=== PATIENT | male | born 1940 | race Caucasian/White ===

== ENCOUNTER 2017-09-23 16:37 | Inpatient (IN) | payer MEDICARE, BC, MEDICAID ==
[2017-09-23 17:02] LABS: CHLORIDE,CL 112 mEq/L (98-106); SODIUM,NA 150 mEq/L (136-145)
[2017-09-23] MEDS ORDERED: Temazepam 15 MG Cap PO PRN (20:42)
[2017-09-23] MEDS ORDERED: Magnesium Hydroxide 400 MG/5 ML Susp 30 ML Cup PO PRN (20:42)
--- NOTE | 2017-09-23 21:12 | PCM.HP ---
H&P History of Present Illness - General Date of Service: 09/23/17 Admit Problem/Dx: Admission Diagnosis/Problem Acute on chronic renal insufficiency Left subsegmental retrocardiac infiltrate Source of Information: EMS, Detention Records History Limitations: Reports: Altered Mental Status - History of Present Illness Initial Comments - Free Text/Narative: Jasper is a 77 year old male, with PMH of dementia, COPD, CAD, glaucoma, CHF, OCD, and type II DM, who is a direct admit from [facility]. He resides in the Alzheimer unit at [facility]. residential staff report since Saturday he has had fever , as high as 102, and has been more lethargic. They called Dr. Bragg earlier today, who ordered labs, showing creatinine of 2.6, BUN 81, and WBC of 19.5 with band neutrophils. Orders were given to [facility] staff to start IVF and give rocephin. [facility] staff reportedly were unable to get an IV in, so they called EMS and he was admitted to hospital. ROS difficult to obtain due to AMS. Patient himself denies any pain or illness. They report at baseline he is ambulatory with a walker. Since Saturday, he has been increasingly more weak and nonambulatory. Has not been coughing. Has not been c/o pain. They report he has not been eating or drinking much. Symptom Onset Date: 09/20/17 Duration of Symptoms: Reports: Getting Worse Location: Reports: Generalized Associated Symptoms: Reports: Confusion, Diaphoresis, Fever/Chills, Loss of Appetite, Weakness. Denies: Chest Pain, Cough, cough w sputum, Nausea/Vomiting - Related Data Allergies/Adverse Reactions: Allergies Allergy/AdvReac Type Severity Reaction Status Date / Time Penicillins Allergy Cannot Verified 09/23/17 21:13 Remember Home Medications: Home Meds Latanoprost 1 drop EYELF BEDTIME 11/01/14 [History] Insulin Detemir [Levemir] 15 unit SUBCUT BEDTIME #1 vial 11/05/14 [Rx] Valsartan [Diovan] 80 mg PO DAILY #30 tablet 11/05/14 [Rx] Acetaminophen [Tylenol] 650 mg PO Q4H PRN 09/23/17 [History] Aspirin [Halfprin] 81 mg PO DAILY 09/23/17 [History] Furosemide [Lasix] 40 mg PO 0800,1600 09/23/17 [History] Social & Family History - Tobacco Use Smoking Status *Q: Former Smoker Years of Tobacco use: 10 Used Tobacco, but Quit: Yes Month/Year Tobacco Last Used: H&P Review of Systems - Review of Systems: Review Of Systems: Unable To Obtain Free Text/Narrative: ROS difficult to obtain due to AMS. ROS partially obtained from [facility] staff report General: Reports: Fever, Weakness, Fatigue, Diaphoresis, Decreased Appetite Pulmonary: Denies: Cough, Sputum Cardiovascular: Denies: Edema Gastrointestinal: Reports: Decreased Appetite. Denies: Vomiting Genitourinary: Reports: Incontinence Psychiatric: Reports: Confusion Neurological: Reports: Confusion, Difficulty Walking Exam - Exam Exam: See Below - Vital Signs Weight: 181 lb 12.8 oz - Exam Quality Assessment: Supplemental Oxygen General: Lethargic (but arousable). No: Oriented HEENT: EOMI, Pupils Equal, Pupils Reactive Neck: Supple, Trachea Midline, 2 Lungs: Clear to Auscultation, Normal Respiratory Effort Cardiovascular: Regular Rate, Regular Rhythm, Systolic Murmur GI/Abdominal Exam: Normal Bowel Sounds, Soft, Non-Tender, No Organomegaly, No Distention, No Abnormal Bruit, No Mass, Pelvis Stable Extremities: Normal Inspection, Normal Range of Motion, Non-Tender, No Pedal Edema, Normal Capillary Refill Peripheral Pulses: 2+: Dorsalis Pedis (L), Dorsalis Pedis (R) Skin: Other (clammy, redness to buttocks) Neurological: Cranial Nerves Intact, Reflexes Equal Bilateral Neuro Extensive - Mental Status: Disorientation to Person, Disorientation to Place, Disorientation to Time, Memory Loss-Remote Events, Memory Loss-Recent Events - Patient Data Lab Results Last 24 hrs: Laboratory Results - last 24 hr 09/23/17 09/23/17 Range/Units 13:00 13:00 WBC 19.5 H (5.0-10.0) 10^3/uL RBC 4.26 L (4.50-6.00) 10^6/uL Hgb 13.0 L (14.0-18.0) g/dL Hct 38.6 L (40.0-54.0) % MCV 90.6 (82.0-94.0) fL MCH 30.5 (27.0-32.0) pg MCHC 33.7 (33.0-38.0) g/dL RDW Coeff of Marylin 13.1 (11.0-15.0) % Plt Count 323 (150-400) 10^3/uL Add Manual Diff Yes Neutrophils % (Manual) 72 (35-85) % Band Neutrophils % 8 H (0-5) % Lymphocytes % (Manual) 5 L (21-55) % Monocytes % (Manual) 11 (2-12) % Metamyelocytes % 4 % Absolute Neutrophils 15.60 H (1.80-7.00) 10^3/uL Lymphocytes # (Manual) 0.98 L (1.00-4.80) 10^3/uL Monocytes # (Manual) 2.15 H (0.00-0.80) 10^3/uL Sodium 150 H (136-145) mEq/L Potassium 3.9 (3.5-5.0) mEq/L Chloride 112 H (98-106) mEq/L Carbon Dioxide 22 (21-32) mmol/L BUN 81 H* D (7-18) mg/dL Creatinine 2.6 H* D (0.7-1.3) mg/dL Est Cr Clr Drug Dosing TNP Estimated GFR (MDRD) 24 L (>=60) mL/min Glucose 249 H D (75-99) mg/dL Calcium 9.0 (8.4-10.1) mg/dL Total Bilirubin 0.5 (0.0-1.0) mg/dL AST 37 (15-37) U/L ALT 32 (12-78) U/L Alkaline Phosphatase 88 (46-116) U/L Total Protein 7.7 (6.4-8.2) g/dL Albumin 3.0 L (3.4-5.0) g/dL Result Diagrams: 09/24/17 07:52 09/23/17 13:00 *Q Meaningful Use (ADM) - VTE *Q VTE Criteria *Q: - Stroke *Q Stroke Criteria *Q: - AMI *Q AMI Criteria *Q: - Problem List (1) Acute on chronic renal failure SNOMED Code(s): 479409307 ICD Code: N17.9 - ACUTE KIDNEY FAILURE, UNSPECIFIED; N18.9 - CHRONIC KIDNEY DISEASE, UNSPECIFIED Status: Chronic Current Visit: Yes Qualifiers: Acute renal failure type: unspecified (2) Dementia SNOMED Code(s): 29959072 ICD Code: F03.90 - UNSPECIFIED DEMENTIA WITHOUT BEHAVIORAL DISTURBANCE Status: Acute Current Visit: Yes Qualifiers: Dementia type: Alzheimer's disease (3) Type II diabetes mellitus SNOMED Code(s): 70755036 ICD Code: E11.9 - TYPE 2 DIABETES MELLITUS WITHOUT COMPLICATIONS Status: Acute Current Visit: Yes Qualifiers: Diabetes mellitus complication status: with hyperglycemia Diabetes mellitus usp insulin use: with usp use Qualified Code(s): E11.65 - Type 2 diabetes mellitus with hyperglycemia; Z79.4 - ferry terminal agent (current) use of insulin; Z79.4 - ferry terminal agent (current) use of insulin; Z79.4 - ferry terminal agent ( current) use of insulin; Z79.4 - correction (current) use of insulin (4) Hypertension SNOMED Code(s): 97268416 ICD Code: I10 - ESSENTIAL (PRIMARY) HYPERTENSION Status: Acute Current Visit: Yes Qualifiers: Hypertension type: essential hypertension Qualified Code(s): I10 - Essential (primary) hypertension (5) Pneumonia SNOMED Code(s): 558701675 ICD Code: J18.9 - PNEUMONIA, UNSPECIFIED ORGANISM Status: Acute Priority : High Current Visit: Yes Qualifiers: Pneumonia type: due to unspecified organism Laterality: left Lung location: unspecified part of lung Qualified Code(s): J18.9 - Pneumonia, unspecified organism Problem List Initiated/Reviewed/Updated: Yes Orders Last 24hrs: Active Orders 24 hr Category Date Time Status Patient Status [ADT] Routine ADT 09/23/17 20:42 Ordered Blood Glucose Check, Bedside [RC] WITHMEALSANDBED Care 09/23/17 20:49 Ordered Intake and Output [RC] QSHIFT Care 09/23/17 20:43 Ordered Oxygen Therapy [RC] PRN Care 09/23/17 20:42 Ordered Pulse Oximetry [RC] PRN Care 09/23/17 20:43 Ordered Up With Assistance [RC] ASDIRECTED Care 09/23/17 20:42 Ordered VTE/DVT Education [RC] PER UNIT ROUTINE Care 09/23/17 20:42 Ordered Vital Signs [RC] Q4H Care 09/23/17 20:42 Ordered Regular Diet [DIET] Diet 09/24/17 Breakfast Ordered Chest 2V [CR] Stat Exams 09/23/17 20:42 Ordered C-REACTIVE PROTEIN [CHEM] Stat Lab 09/23/17 20:42 Ordered CULTURE BLOOD [BC] Stat Lab 09/23/17 20:45 Ordered CULTURE BLOOD [BC] Stat Lab 09/23/17 20:45 Ordered MAGNESIUM [CHEM] Stat Lab 09/23/17 20:42 Ordered TROPONIN I [CHEM] Stat Lab 09/23/17 20:42 Ordered UA W/MICROSCOPIC [URIN] Stat Lab 09/23/17 20:42 Ordered Acetaminophen [Tylenol] Med 09/23/17 20:42 Ordered 650 mg PO Q4H PRN Azithromycin [Zithromax] 500 mg Med 09/23/17 21:00 Ordered Sodium Chloride 0.9% [Normal Saline] 250 ml IV Q24H Enoxaparin [Lovenox] Med 09/23/17 20:45 Ordered 30 mg SUBCUT Q24H Insulin Aspart [NovoLOG] Med 09/23/17 21:00 Ordered See Protocol SUBCUT WITHMEALSANDBED Magnesium Hydroxide [Milk of Magnesia] Med 09/23/17 20:42 Ordered 30 ml PO Q12H PRN Sodium Chloride 0.9% @ 125 MLS/HR (1000ml) Med 09/23/17 20:45 Ordered Sodium Chloride 0.9% [Normal Saline] 1,000 ml IV ASDIRECTED Temazepam [Restoril] Med 09/23/17 20:42 Ordered 15 mg PO BEDTIME PRN cefTRIAXone [Rocephin] Med 09/23/17 21:00 Ordered 1 gm IVPUSH Q24H Blood Culture x2 Reflex Set [OM.PC] Stat Oth 09/23/17 20:42 Ordered Resuscitation Status Routine Resus Stat 09/23/17 20:42 Ordered EKG 12 Lead [EK] Stat Ther 09/23/17 20:42 Ordered Medication Orders Acetaminophen (Tylenol) 650 mg PO Q4H PRN PRN Reason: Pain (Mild 1-3)/fever Ceftriaxone Sodium (Rocephin) 1 gm IVPUSH Q24H NASIR Enoxaparin Sodium (Lovenox) 30 mg SUBCUT Q24H NASIR Sodium Chloride (Normal Saline) 1,000 mls @ 125 mls/hr IV ASDIRECTED NASIR Azithromycin 500 mg/ Sodium (Chloride) 250 mls @ 250 mls/hr IV Q24H NASIR Insulin Aspart (Novolog) 0 unit SUBCUT WITHMEALSANDBED NASIR PRN Reason: Protocol Magnesium Hydroxide (Milk Of Magnesia) 30 ml PO Q12H PRN PRN Reason: Constipation Temazepam (Restoril) 15 mg PO BEDTIME PRN PRN Reason: Sleep Assessment/Plan Comment:: CXR shows small left effusion and subsegmental retrocardiac opacity Admit to acute to Dr. Bragg Start IV antibiotics and steroids IVF @ 125 mL/hr Awaiting blood cultures Labs in am
[2017-09-23] MEDS: Sodium Chloride 0.9% 1,000 ML IV SCH (22:00)
[2017-09-23] MEDS: Acetaminophen 325 MG Tab PO PRN (22:00)
[2017-09-23] MEDS: Enoxaparin 30 MG/0.3 ML Syringe SUBCUT SCH (22:03)
[2017-09-23] MEDS: cefTRIAXone 1 GM Vial IVPUSH SCH (22:03)
[2017-09-23] MEDS: Azithromycin 500 MG in Sodium Chloride 0.9% 250 ML IV SCH (22:03)
[2017-09-23] MEDS: Insulin Aspart 100 Units/ML 3 ML Pen SUBCUT SCH (22:04)
[2017-09-24] MEDS: Sodium Chloride 0.9% 1,000 ML IV SCH (07:13)
[2017-09-24] MEDS: Insulin Aspart 100 Units/ML 3 ML Pen SUBCUT SCH ×4 (07:32→20:46)
[2017-09-24] MEDS ORDERED: methylPREDNISolone Sodium Succinate 125 MG/2 ML SDV IVPUSH SCH (08:00)
[2017-09-24] MEDS: Aspirin 81 MG Tab.EC PO SCH (08:28)
[2017-09-24] MEDS: Losartan 25 MG Tab PO SCH (08:28)
[2017-09-24] MEDS: Furosemide 40 MG Tab PO SCH ×2 (08:28→16:18)
[2017-09-24] MEDS: Sodium Chloride 0.45% with KCl 1,000 ML IV SCH (09:05)
--- NOTE | 2017-09-24 11:32 | PCM.PN ---
- General Info Date of Service: 09/24/17 Admission Dx/Problem (Free Text): Admission Diagnosis/Problem Acute on chronic renal insufficiency Left subsegmental retrocardiac infiltrate Functional Status: Reports: Pain Controlled, Tolerating Diet. Denies: Ambulating - Review of Systems General: Reports: Fever, Weakness, Fatigue, Other (patient has history of dementia, denies concerns but doesn't answer appropriately to questions) - Patient Data Vitals - Most Recent: Last Vital Signs Temp 99.1 F 09/24/17 07:30 Pulse 60 09/24/17 07:30 Resp 20 09/24/17 07:30 BP 106/70 09/24/17 08:28 Pulse Ox 93 L 09/24/17 07:30 Weight - Most Recent: 181 lb 12.8 oz I&O - Last 24 Hours: Intake & Output 09/23/17 09/24/17 09/24/17 22:59 06:59 14:59 Intake Total 1200 Balance 1200 Lab Results Last 24 Hours: Laboratory Results - last 24 hr 09/23/17 09/23/17 09/23/17 Range/Units 13:00 13:00 20:42 WBC 19.5 H (5.0-10.0) 10^3/uL RBC 4.26 L (4.50-6.00) 10^6/uL Hgb 13.0 L (14.0-18.0) g/dL Hct 38.6 L (40.0-54.0) % MCV 90.6 (82.0-94.0) fL MCH 30.5 (27.0-32.0) pg MCHC 33.7 (33.0-38.0) g/dL RDW Coeff of Marylin 13.1 (11.0-15.0) % Plt Count 323 (150-400) 10^3/uL Neut % (Auto) (35-85) % Lymph % (Auto) (10-55) % Dare % (Auto) (0-16) % Eos % (Auto) (0-5) % Baso % (Auto) (0-3) % Neut # (Auto) (1.80-7.00) 10^3/uL Lymph # (Auto) (1.00-4.80) 10^3/uL Dare # (Auto) (0.00-0.80) 10^3/uL Eos # (Auto) (0.00-0.45) 10^3/uL Baso # (Auto) 10^3/uL Add Manual Diff Yes Neutrophils % (Manual) 72 (35-85) % Band Neutrophils % 8 H (0-5) % Lymphocytes % (Manual) 5 L (21-55) % Monocytes % (Manual) 11 (2-12) % Metamyelocytes % 4 % Absolute Neutrophils 15.60 H (1.80-7.00) 10^3/uL Lymphocytes # (Manual) 0.98 L (1.00-4.80) 10^3/uL Monocytes # (Manual) 2.15 H (0.00-0.80) 10^3/uL ESR (0-15) mm/hr Sodium 150 H (136-145) mEq/L Potassium 3.9 (3.5-5.0) mEq/L Chloride 112 H (98-106) mEq/L Carbon Dioxide 22 (21-32) mmol/L BUN 81 H* D (7-18) mg/dL Creatinine 2.6 H* D (0.7-1.3) mg/dL Est Cr Clr Drug Dosing TNP Estimated GFR (MDRD) 24 L (>=60) mL/min Glucose 249 H D (75-99) mg/dL POC Glucose (75-105) mg/dl Calcium 9.0 (8.4-10.1) mg/dL Magnesium (1.8-2.4) mg/dL Total Bilirubin 0.5 (0.0-1.0) mg/dL AST 37 (15-37) U/L ALT 32 (12-78) U/L Alkaline Phosphatase 88 (46-116) U/L Troponin I (0.00-0.06) ng/mL C-Reactive Protein (0.2-0.8) mg/dL Total Protein 7.7 (6.4-8.2) g/dL Albumin 3.0 L (3.4-5.0) g/dL Urine Color Light yellow (YELLOW) Urine Appearance Clear (CLEAR) Urine pH 5.0 (4.5-8.0) Ur Specific [place] <= 1.005 (1.003-1.020) Urine Protein 30 H (NEGATIVE) mg/dL Urine Glucose (UA) Negative (NEGATIVE) mg/dL Urine Ketones Negative (NEGATIVE) mg/dL Urine Occult Blood Trace-lysed H (NEGATIVE) Urine Nitrite Negative (NEGATIVE) Urine Bilirubin Negative (NEGATIVE) Urine Urobilinogen 0.2 (0.2-1.0) EU/dL Ur Leukocyte Esterase Negative (NEGATIVE) Urine RBC 0-5 (0-5) /HPF Urine WBC Not seen (0-5) /HPF Ur Squamous Epith Cells Few H (NOT SEEN) /HPF 09/23/17 09/24/17 09/24/17 Range/Units 21:15 07:27 07:52 WBC 11.8 H (5.0-10.0) 10^3/uL RBC 3.69 L (4.50-6.00) 10^6/uL Hgb 11.0 L (14.0-18.0) g/dL Hct 33.8 L (40.0-54.0) % MCV 91.6 (82.0-94.0) fL MCH 29.8 (27.0-32.0) pg MCHC 32.5 L (33.0-38.0) g/dL RDW Coeff of Marylin 13.2 (11.0-15.0) % Plt Count 237 (150-400) 10^3/uL Neut % (Auto) 79.9 (35-85) % Lymph % (Auto) 8.4 L (10-55) % Dare % (Auto) 11.3 (0-16) % Eos % (Auto) 0.3 (0-5) % Baso % (Auto) 0.1 (0-3) % Neut # (Auto) 9.41 H (1.80-7.00) 10^3/uL Lymph # (Auto) 0.99 L (1.00-4.80) 10^3/uL Dare # (Auto) 1.33 H (0.00-0.80) 10^3/uL Eos # (Auto) 0.03 (0.00-0.45) 10^3/uL Baso # (Auto) 0.01 10^3/uL Add Manual Diff Neutrophils % (Manual) (35-85) % Band Neutrophils % (0-5) % Lymphocytes % (Manual) (21-55) % Monocytes % (Manual) (2-12) % Metamyelocytes % % Absolute Neutrophils (1.80-7.00) 10^3/uL Lymphocytes # (Manual) (1.00-4.80) 10^3/uL Monocytes # (Manual) (0.00-0.80) 10^3/uL ESR (0-15) mm/hr Sodium (136-145) mEq/L Potassium (3.5-5.0) mEq/L Chloride (98-106) mEq/L Carbon Dioxide (21-32) mmol/L BUN (7-18) mg/dL Creatinine (0.7-1.3) mg/dL Est Cr Clr Drug Dosing Estimated GFR (MDRD) (>=60) mL/min Glucose (75-99) mg/dL POC Glucose 112 H (75-105) mg/dl Calcium (8.4-10.1) mg/dL Magnesium 2.8 H (1.8-2.4) mg/dL Total Bilirubin (0.0-1.0) mg/dL AST (15-37) U/L ALT (12-78) U/L Alkaline Phosphatase (46-116) U/L Troponin I < 0.017 (0.00-0.06) ng/mL C-Reactive Protein 82.0 H (0.2-0.8) mg/dL Total Protein (6.4-8.2) g/dL Albumin (3.4-5.0) g/dL Urine Color (YELLOW) Urine Appearance (CLEAR) Urine pH (4.5-8.0) Ur Specific [place] (1.003-1.020) Urine Protein (NEGATIVE) mg/dL Urine Glucose (UA) (NEGATIVE) mg/dL Urine Ketones (NEGATIVE) mg/dL Urine Occult Blood (NEGATIVE) Urine Nitrite (NEGATIVE) Urine Bilirubin (NEGATIVE) Urine Urobilinogen (0.2-1.0) EU/dL Ur Leukocyte Esterase (NEGATIVE) Urine RBC (0-5) /HPF Urine WBC (0-5) /HPF Ur Squamous Epith Cells (NOT SEEN) /HPF 09/24/17 09/24/17 Range/Units 07:52 07:59 WBC (5.0-10.0) 10^3/uL RBC (4.50-6.00) 10^6/uL Hgb (14.0-18.0) g/dL Hct (40.0-54.0) % MCV (82.0-94.0) fL MCH (27.0-32.0) pg MCHC (33.0-38.0) g/dL RDW Coeff of Marylin (11.0-15.0) % Plt Count (150-400) 10^3/uL Neut % (Auto) (35-85) % Lymph % (Auto) (10-55) % Dare % (Auto) (0-16) % Eos % (Auto) (0-5) % Baso % (Auto) (0-3) % Neut # (Auto) (1.80-7.00) 10^3/uL Lymph # (Auto) (1.00-4.80) 10^3/uL Dare # (Auto) (0.00-0.80) 10^3/uL Eos # (Auto) (0.00-0.45) 10^3/uL Baso # (Auto) 10^3/uL Add Manual Diff Neutrophils % (Manual) (35-85) % Band Neutrophils % (0-5) % Lymphocytes % (Manual) (21-55) % Monocytes % (Manual) (2-12) % Metamyelocytes % % Absolute Neutrophils (1.80-7.00) 10^3/uL Lymphocytes # (Manual) (1.00-4.80) 10^3/uL Monocytes # (Manual) (0.00-0.80) 10^3/uL ESR > 140 H (0-15) mm/hr Sodium 154 H (136-145) mEq/L Potassium 3.4 L (3.5-5.0) mEq/L Chloride 117 H (98-106) mEq/L Carbon Dioxide 25 (21-32) mmol/L BUN 73 H* (7-18) mg/dL Creatinine 1.9 H (0.7-1.3) mg/dL Est Cr Clr Drug Dosing 34.60 Estimated GFR (MDRD) 34 L (>=60) mL/min Glucose 133 H D (75-99) mg/dL POC Glucose (75-105) mg/dl Calcium 8.3 L (8.4-10.1) mg/dL Magnesium (1.8-2.4) mg/dL Total Bilirubin (0.0-1.0) mg/dL AST (15-37) U/L ALT (12-78) U/L Alkaline Phosphatase (46-116) U/L Troponin I (0.00-0.06) ng/mL C-Reactive Protein 39.1 H (0.2-0.8) mg/dL Total Protein (6.4-8.2) g/dL Albumin (3.4-5.0) g/dL Urine Color (YELLOW) Urine Appearance (CLEAR) Urine pH (4.5-8.0) Ur Specific [place] (1.003-1.020) Urine Protein (NEGATIVE) mg/dL Urine Glucose (UA) (NEGATIVE) mg/dL Urine Ketones (NEGATIVE) mg/dL Urine Occult Blood (NEGATIVE) Urine Nitrite (NEGATIVE) Urine Bilirubin (NEGATIVE) Urine Urobilinogen (0.2-1.0) EU/dL Ur Leukocyte Esterase (NEGATIVE) Urine RBC (0-5) /HPF Urine WBC (0-5) /HPF Ur Squamous Epith Cells (NOT SEEN) /HPF Med Orders - Current: Current Medications Acetaminophen (Tylenol) 650 mg PO Q4H PRN PRN Reason: Pain (Mild 1-3)/fever Last Admin: 09/23/17 22:00 Dose: 650 mg Aspirin (Halfprin) 81 mg PO DAILY [facility] Last Admin: 09/24/17 08:28 Dose: 81 mg Ceftriaxone Sodium (Rocephin) 1 gm IVPUSH Q24H [facility] Last Admin: 09/23/17 22:03 Dose: 1 gm Enoxaparin Sodium (Lovenox) 30 mg SUBCUT Q24H [facility] Last Admin: 09/23/17 22:03 Dose: 30 mg Furosemide (Lasix) 40 mg PO 0800,1600 [facility] Last Admin: 09/24/17 08:28 Dose: 40 mg Azithromycin 500 mg/ Sodium (Chloride) 250 mls @ 250 mls/hr IV Q24H [facility] Last Admin: 09/23/17 22:03 Dose: 250 mls/hr Potassium Chloride/Sodium Chloride (1/2 Ns With 20 Meq Kcl) 1,000 mls @ 75 mls/ hr IV ASDIRECTED [facility] Last Admin: 09/24/17 09:05 Dose: 75 mls/hr Insulin Aspart (Novolog) 0 unit SUBCUT WITHMEALSANDBED [facility] PRN Reason: Protocol Last Admin: 09/24/17 07:32 Dose: Not Given Insulin Detemir (Levemir) 15 unit SUBCUT BEDTIME [facility] Latanoprost (Xalatan 0.005% Ophth Soln) 0 ml EYELF BEDTIME [facility] Losartan Potassium (Cozaar) 25 mg PO DAILY [facility] Last Admin: 09/24/17 08:28 Dose: 25 mg Magnesium Hydroxide (Milk Of Magnesia) 30 ml PO Q12H PRN PRN Reason: Constipation Temazepam (Restoril) 15 mg PO BEDTIME PRN PRN Reason: Sleep Discontinued Medications Sodium Chloride (Normal Saline) 1,000 mls @ 125 mls/hr IV ASDIRECTED [facility] Last Admin: 09/24/17 07:13 Dose: 125 mls/hr Methylprednisolone Sodium Succinate (Solu-Medrol) 62.5 mg IVPUSH Q24H [facility] Last Admin: 09/24/17 08:28 Dose: 62.5 mg - Exam General: Alert. No: Oriented HEENT: Mucous Membr. Moist/[place] Neck: Supple Lungs: Decreased Breath Sounds Cardiovascular: Regular Rate, Regular Rhythm GI/Abdominal Exam: Normal Bowel Sounds, Soft, Non-Tender Extremities: Normal Inspection, No Pedal Edema Skin: Warm, Dry Neurological: No New Focal Deficit Psy/Mental Status: Other (history of dementia) - Problem List & Annotations (1) Pneumonia SNOMED Code(s): 537243950 Code(s): J18.9 - PNEUMONIA, UNSPECIFIED ORGANISM Status: Acute Priority: High Current Visit: Yes Qualifiers: Pneumonia type: due to unspecified organism Laterality: left Lung location: lower lobe of lung Qualified Code(s): J18.1 - Lobar pneumonia, unspecified organism (2) Acute on chronic renal failure SNOMED Code(s): 830567795 Code(s): N17.9 - ACUTE KIDNEY FAILURE, UNSPECIFIED; N18.9 - CHRONIC KIDNEY DISEASE, UNSPECIFIED Status: Acute Priority: High Current Visit: Yes Qualifiers: Acute renal failure type: unspecified (3) Dementia SNOMED Code(s): 24735598 Code(s): F03.90 - UNSPECIFIED DEMENTIA WITHOUT BEHAVIORAL DISTURBANCE Status: Chronic Priority: High Current Visit: Yes Qualifiers: Dementia type: Alzheimer's disease (4) Type II diabetes mellitus SNOMED Code(s): 45363812 Code(s): E11.9 - TYPE 2 DIABETES MELLITUS WITHOUT COMPLICATIONS Status: Chronic Priority: Medium Current Visit: Yes Qualifiers: Diabetes mellitus complication status: with hyperglycemia Diabetes mellitus fpc insulin use: with fpc use Qualified Code(s): E11.65 - Type 2 diabetes mellitus with hyperglycemia; Z79.4 - group home (current) use of insulin; Z79.4 - group home (current) use of insulin; Z79.4 - group home ( current) use of insulin; Z79.4 - group home (current) use of insulin - Problem List Review Problem List Initiated/Reviewed/Updated: Yes - My Orders Last 24 Hours: My Active Orders 09/24/17 09:00 Sodium Chloride 0.45% with KCl [1/2 NS with 20 mEq KCl] 1,000 ml IV ASDIRECTED - Assessment Assessment:: Retrocardiac pneumonia Acute on chronic kidney failure Alzheimer's Dementia Type 2 DM - Plan Plan:: CXR shows small left effusion and subsegmental retrocardiac opacity Admit to acute to Dr. Bragg Start IV antibiotics and steroids IVF @ 125 mL/hr Awaiting blood cultures Labs in am 09-24-2017 Patient alert this am, confused per his norm related to his dementia. Does not answer questions appropriately, denies pain or shortness of breath. Mild cough noted. Breath sounds are diminished but does not inhale deeply to command. No edema. Labs improved this am, WBC down from 19.5 to 11.8, CRP down from 82 to 39.1. Creatinine now 1.9. Sodium is up to 154, K+ down to 3.4. Has had low grade fevers Will stop steroids. Continue to monitor blood sugars and insulin per sliding scale. Switch IV fluids to 1/2 NS with 20 meq of KCL and reduce rate to 75 ml/ hr. Continue IV antibiotics. Repeat labs in am.
[2017-09-24] MEDS ORDERED: Latanoprost 0.005% Ophth Soln 2.5 ML Bottle EYELF SCH (20:00)
[2017-09-24] MEDS ORDERED: Insulin Detemir 100 Units/ML 3 ML Pen SUBCUT SCH (20:00)
[2017-09-24] MEDS: Azithromycin 500 MG in Sodium Chloride 0.9% 250 ML IV SCH (20:30)
[2017-09-24] MEDS: cefTRIAXone 1 GM Vial IVPUSH SCH (20:30)
[2017-09-24] MEDS: Enoxaparin 30 MG/0.3 ML Syringe SUBCUT SCH (21:00)
[2017-09-25] MEDS: Acetaminophen 325 MG Tab PO PRN (00:10)
[2017-09-25] MEDS: Sodium Chloride 0.45% with KCl 1,000 ML IV SCH (00:10)
[2017-09-25] MEDS: Losartan 25 MG Tab PO SCH (07:56)
[2017-09-25] MEDS: Aspirin 81 MG Tab.EC PO SCH (07:57)
[2017-09-25] MEDS: Furosemide 40 MG Tab PO SCH (07:58)
[2017-09-25] MEDS: Insulin Aspart 100 Units/ML 3 ML Pen SUBCUT SCH (08:00)
[2017-09-25 08:50] VITALS: BP 133/69
--- NOTE | 2017-09-25 10:49 | PCM.DCSUM1 ---
Discharge Summary - Hospital Course Free Text/Narrative:: Patient had labs done on Saturday that indicated acute on chronic kidney failure with a creatinine of 2.6, BUN of 81. Chest xray showed a retrocardiac infiltrate. WBC was high at 19 with bands, CRP of 82. Was a direct admit from the [facility] after they were unsuccessful with being able to start IV fluids and Rocephin there. Patient started on IV Normal saline and Rocephin and Zithromax. Blood cultures ordered. Patient does have a history of Alzheimer's dementia, resident in the [facility] wing at the home. Unable to provide ROS due to altered mental status. Staff from the [facility] reports that he had been running a temp, up to 102, weak and had a cough. He is normally ambulatory at the home but has been unable to due to weakness. His appetite has been diminished, not taking fluids well. - Discharge Data Discharge Date: 09/25/17 Discharge Disposition: DC/Tfer to [employer] [employer] [facility], [place] 61 Condition: Fair - Discharge Diagnosis/Problem(s) (1) Pneumonia SNOMED Code(s): 037994113 ICD Code: J18.9 - PNEUMONIA, UNSPECIFIED ORGANISM Status: Acute Priority : High Current Visit: Yes Qualifiers: Pneumonia type: due to unspecified organism Laterality: left Lung location: lower lobe of lung Qualified Code(s): J18.1 - Lobar pneumonia, unspecified organism (2) Acute on chronic renal failure SNOMED Code(s): 579222108 ICD Code: N17.9 - ACUTE KIDNEY FAILURE, UNSPECIFIED; N18.9 - CHRONIC KIDNEY DISEASE, UNSPECIFIED Status: Acute Priority: High Current Visit: Yes Qualifiers: Acute renal failure type: unspecified (3) Dementia SNOMED Code(s): 77473348 ICD Code: F03.90 - UNSPECIFIED DEMENTIA WITHOUT BEHAVIORAL DISTURBANCE Status: Chronic Priority: High Current Visit: Yes Qualifiers: Dementia type: Alzheimer's disease (4) Type II diabetes mellitus SNOMED Code(s): 22275029 ICD Code: E11.9 - TYPE 2 DIABETES MELLITUS WITHOUT COMPLICATIONS Status: Chronic Priority: Medium Current Visit: Yes Qualifiers: Diabetes mellitus complication status: with hyperglycemia Diabetes mellitus shelter insulin use: with sales representative supervisor use Qualified Code(s): E11.65 - Type 2 diabetes mellitus with hyperglycemia; Z79.4 - insurance risk manager (current) use of insulin; Z79.4 - half-way (current) use of insulin; Z79.4 - half-way ( current) use of insulin; Z79.4 - half-way (current) use of insulin - Patient Summary/Data Complications: none Hospital Course: Patient has had good improvement of overall status. He is much more alert, feeding self. Consuming 100% of his meals. Continues to have disorientation but is chronic for patient due to his Alzheimer's Dementia. Patient did have a low grade fever during the night of 99.4. Labs have much improved. Yesterday his sodium was high at 154 with a potassium of 3.4 so IV fluids were reduced to 75 ml/hr and changed to 1/2 NS with 20 mEq of KCL. WBC today is down to 11.2, CRP of 18.7. Creatinine improved and more to his baseline at 1.5, BUN of 56. Sodium improved at 149, potassium stable at 3.6. Lung sounds are clear but diminished. Does still have dry cough. Patient will be discharged back to [facility]. Will continue Levaquin 250 mg daily for [address] Bragg will see him on rounds. - Patient Instructions Diet: Usual Diet as Tolerated, Diabetic Diet Activity: As Tolerated - Discharge Plan Prescriptions/Med Rec: Levofloxacin [Levaquin] 250 mg PO DAILY #10 tab Home Medications: Home Meds Latanoprost 1 drop EYELF BEDTIME 11/01/14 [History] Insulin Detemir [Levemir] 15 unit SUBCUT BEDTIME #1 vial 11/05/14 [Rx] Valsartan [Diovan] 80 mg PO DAILY #30 tablet 11/05/14 [Rx] Acetaminophen [Tylenol] 650 mg PO Q4H PRN 09/23/17 [History] Aspirin [Halfprin] 81 mg PO DAILY 09/23/17 [History] Furosemide [Lasix] 40 mg PO 0800,1600 09/23/17 [History] Levofloxacin [Levaquin] 250 mg PO DAILY #10 tab 09/25/17 [Rx] - Discharge Summary/Plan Comment DC Time >30 min.: No Discharge Summary/Plan Comment: Discharge back to [facility]. Continue Levaquin 250 mg for 10 days. - General Info Date of Service: 09/25/17 Admission Dx/Problem (Free Text: Admission Diagnosis/Problem Acute on chronic renal insufficiency Left subsegmental retrocardiac infiltrate Functional Status: Reports: Pain Controlled, Tolerating Diet. Denies: Ambulating - Review of Systems General: Reports: Fever (low grade), Weakness, Fatigue, Other (ROS unable to obtain per patient, is disoriented. Does not answer questions appropriately) HEENT: Reports: No Symptoms Pulmonary: Reports: Cough. Denies: Shortness of Breath, Sputum, Wheezing - Patient Data Vitals - Most Recent: Last Vital Signs Temp 97.9 F 09/25/17 08:00 Pulse 74 09/25/17 08:00 Resp 20 09/25/17 08:00 BP 133/69 09/25/17 08:00 Pulse Ox 95 09/25/17 08:00 Weight - Most Recent: 181 lb 12.8 oz I&O - Last 24 hours: Intake & Output 09/24/17 09/25/17 09/25/17 22:59 06:59 14:59 Intake Total 1700 600 450 Balance 1700 600 450 Lab Results - Last 24 hrs: Laboratory Results - last 24 hr 09/24/17 09/24/17 09/24/17 Range/Units 11:38 17:05 20:21 WBC (5.0-10.0) 10^3/uL RBC (4.50-6.00) 10^6/uL Hgb (14.0-18.0) g/dL Hct (40.0-54.0) % MCV (82.0-94.0) fL MCH (27.0-32.0) pg MCHC (33.0-38.0) g/dL RDW Coeff of Marylin (11.0-15.0) % Plt Count (150-400) 10^3/uL Neut % (Auto) (35-85) % Lymph % (Auto) (10-55) % Archer % (Auto) (0-16) % Eos % (Auto) (0-5) % Baso % (Auto) (0-3) % Neut # (Auto) (1.80-7.00) 10^3/uL Lymph # (Auto) (1.00-4.80) 10^3/uL Archer # (Auto) (0.00-0.80) 10^3/uL Eos # (Auto) (0.00-0.45) 10^3/uL Baso # (Auto) 10^3/uL Sodium (136-145) mEq/L Potassium (3.5-5.0) mEq/L Chloride (98-106) mEq/L Carbon Dioxide (21-32) mmol/L BUN (7-18) mg/dL Creatinine (0.7-1.3) mg/dL Est Cr Clr Drug Dosing mL/min Estimated GFR (MDRD) (>=60) mL/min Glucose (75-99) mg/dL POC Glucose 224 H 216 H 294 H (75-105) mg/dl Calcium (8.4-10.1) mg/dL C-Reactive Protein (0.2-0.8) mg/dL 09/25/17 09/25/17 09/25/17 Range/Units 07:16 07:16 07:33 WBC 11.2 H (5.0-10.0) 10^3/uL RBC 3.31 L (4.50-6.00) 10^6/uL Hgb 9.9 L (14.0-18.0) g/dL Hct 30.2 L (40.0-54.0) % MCV 91.2 (82.0-94.0) fL MCH 29.9 (27.0-32.0) pg MCHC 32.8 L (33.0-38.0) g/dL RDW Coeff of Marylin 13.2 (11.0-15.0) % Plt Count 219 (150-400) 10^3/uL Neut % (Auto) 75.5 (35-85) % Lymph % (Auto) 13.1 (10-55) % Archer % (Auto) 10.8 (0-16) % Eos % (Auto) 0.4 (0-5) % Baso % (Auto) 0.2 (0-3) % Neut # (Auto) 8.45 H (1.80-7.00) 10^3/uL Lymph # (Auto) 1.47 (1.00-4.80) 10^3/uL Archer # (Auto) 1.21 H (0.00-0.80) 10^3/uL Eos # (Auto) 0.05 (0.00-0.45) 10^3/uL Baso # (Auto) 0.02 10^3/uL Sodium 149 H (136-145) mEq/L Potassium 3.6 (3.5-5.0) mEq/L Chloride 114 H (98-106) mEq/L Carbon Dioxide 23 (21-32) mmol/L BUN 56 H (7-18) mg/dL Creatinine 1.5 H (0.7-1.3) mg/dL Est Cr Clr Drug Dosing 43.83 mL/min Estimated GFR (MDRD) 45 L (>=60) mL/min Glucose 102 H (75-99) mg/dL POC Glucose 86 (75-105) mg/dl Calcium 8.4 (8.4-10.1) mg/dL C-Reactive Protein 18.7 H (0.2-0.8) mg/dL ABHAY Results - Last 24 hrs: Microbiology 09/23/17 21:00 Aerobic Blood Culture - Preliminary Blood - Venous NO GROWTH AFTER 1 DAY Anaerobic Blood Culture - Preliminary NO GROWTH AFTER 1 DAY 09/23/17 21:15 Aerobic Blood Culture - Preliminary Blood - Venous - Lab Draw NO GROWTH AFTER 1 DAY Anaerobic Blood Culture - Preliminary NO GROWTH AFTER 1 DAY Med Orders - Current: Current Medications Acetaminophen (Tylenol) 650 mg PO Q4H PRN PRN Reason: Pain (Mild 1-3)/fever Last Admin: 09/25/17 00:10 Dose: 650 mg Aspirin (Halfprin) 81 mg PO DAILY COUNTS INCLUDE 234 BEDS AT THE [facility] Last Admin: 09/25/17 07:57 Dose: 81 mg Ceftriaxone Sodium (Rocephin) 1 gm IVPUSH Q24H COUNTS INCLUDE 234 BEDS AT THE [facility] Last Admin: 09/24/17 20:30 Dose: 1 gm Enoxaparin Sodium (Lovenox) 30 mg SUBCUT Q24H COUNTS INCLUDE 234 BEDS AT THE [facility] Last Admin: 09/24/17 21:00 Dose: 30 mg Furosemide (Lasix) 40 mg PO 0800,1600 COUNTS INCLUDE 234 BEDS AT THE [facility] Last Admin: 09/25/17 07:58 Dose: 40 mg Azithromycin 500 mg/ Sodium (Chloride) 250 mls @ 250 mls/hr IV Q24H COUNTS INCLUDE 234 BEDS AT THE [facility] Last Admin: 09/24/17 20:30 Dose: 250 mls/hr Potassium Chloride/Sodium Chloride (1/2 Ns With 20 Meq Kcl) 1,000 mls @ 75 mls/ hr IV ASDIRECTED COUNTS INCLUDE 234 BEDS AT THE [facility] Last Admin: 09/25/17 00:10 Dose: 75 mls/hr Insulin Aspart (Novolog) 0 unit SUBCUT WITHMEALSANDBED COUNTS INCLUDE 234 BEDS AT THE [facility] PRN Reason: Protocol Last Admin: 09/25/17 08:00 Dose: Not Given Insulin Detemir (Levemir) 15 unit SUBCUT BEDTIME COUNTS INCLUDE 234 BEDS AT THE [facility] Last Admin: 09/24/17 20:31 Dose: 15 units Latanoprost (Xalatan 0.005% Ophth Soln) 0 ml EYELF BEDTIME COUNTS INCLUDE 234 BEDS AT THE [facility] Last Admin: 09/24/17 20:42 Dose: 1 drop Losartan Potassium (Cozaar) 25 mg PO DAILY COUNTS INCLUDE 234 BEDS AT THE [facility] Last Admin: 09/25/17 07:56 Dose: 25 mg Magnesium Hydroxide (Milk Of Magnesia) 30 ml PO Q12H PRN PRN Reason: Constipation Temazepam (Restoril) 15 mg PO BEDTIME PRN PRN Reason: Sleep Discontinued Medications Sodium Chloride (Normal Saline) 1,000 mls @ 125 mls/hr IV ASDIRECTED COUNTS INCLUDE 234 BEDS AT THE [facility] Last Admin: 09/24/17 07:13 Dose: 125 mls/hr Methylprednisolone Sodium Succinate (Solu-Medrol) 62.5 mg IVPUSH Q24H COUNTS INCLUDE 234 BEDS AT THE [facility] Last Admin: 09/24/17 08:28 Dose: 62.5 mg - Exam General: Reports: Alert. Denies: Oriented HEENT: Reports: Mucous Membr. Moist/Elmer Neck: Reports: Supple Lungs: Reports: Decreased Breath Sounds Cardiovascular: Reports: Regular Rate, Regular Rhythm GI/Abdominal Exam: Normal Bowel Sounds, Soft, Non-Tender Extremities: No Pedal Edema Skin: Reports: Warm, Dry Neurological: Reports: No New Focal Deficit *Q Meaningful Use (DIS) - VTE *Q VTE Criteria *Q: - Stroke *Q Stroke Criteria *Q: - AMI *Q AMI Criteria *Q:
== END 2017-09-25 10:45 | DRG 194 ==
LOC: CC.NPLAB 16:37 → CC.MS 20:33 → UNDOADMIN 20:33 → CC.MS 20:42
PROVIDERS: ADMIT Nurse Practitioner Family; ATTEND Family Medicine
DX: J18.8 Other pneumonia, unspecified organism (principal); R11.2 Nausea with vomiting, unspecified; I13.0 Hypertensive heart and chronic kidney disease with heart failure and stage 1 through stage 4 chronic kidney disease, or unspecified chronic kidney disease; N17.9 Acute kidney failure, unspecified; I25.10 Atherosclerotic heart disease of native coronary artery without angina pectoris; N18.9 Chronic kidney disease, unspecified; I50.9 Heart failure, unspecified; Z87.891 Personal history of nicotine dependence; E11.65 Type 2 diabetes mellitus with hyperglycemia; G30.9 Alzheimer's disease, unspecified; F02.80 Dementia in other diseases classified elsewhere, unspecified severity, without behavioral disturbance, psychotic disturbance, mood disturbance, and anxiety; J44.9 Chronic obstructive pulmonary disease, unspecified; H40.9 Unspecified glaucoma; Z88.0 Allergy status to penicillin; Z79.82 Long term (current) use of aspirin; Z79.4 Long term (current) use of insulin; Z79.899 Other long term (current) drug therapy
CPT/HCPCS: 36415; 71045; 80048; 80053; 81001; 82962; 83735; 84484; 85025; 85651; 86140; 87040; 93005; A9270-GY; J0456; J0696; J1650; J1815-GY; J2930; J3480; J7030; J7050